=== PATIENT | male | born 1965 | race Caucasian/White ===

== ENCOUNTER → 2024-03-07 12:06 | Outpatient (REF) | payer BC, SELFPAY | LOC: PAVMRI 12:06 | PROVIDERS: ATTENDING PHYSICIAN Physician Assistant Medical; FAMILY PHYSICIAN Student in an Organized Health Care Education/Training Program | DX: M79.661 Pain in right lower leg (principal) | CPT/HCPCS: 73720; A9575 ==

== ENCOUNTER → 2025-04-25 11:07 | Outpatient (REF) | payer SELFPAY | LOC: RAD 11:07 | PROVIDERS: ATTENDING PHYSICIAN Student in an Organized Health Care Education/Training Program | DX: E78.5 Hyperlipidemia, unspecified (principal) | CPT/HCPCS: 75571 ==